=== PATIENT | male | born 1960 | race Caucasian/White ===

== ENCOUNTER 2017-05-01 12:18 | Day surgery (SDC) | payer OTHER ==
[~2017-05-01] VITALS: Ht 180.3 cm; Wt 95.7 kg
--- NOTE | 2017-05-01 16:16 | NUR ---
05/01/17 1616 Emma Echols 1611 PATIENT AWAKE AND TALKING ON ARRIVAL TO PACU. ANSWERS QUESTIONS APPROPRIATELY.
--- NOTE | 2017-05-25 10:36 | OR ---
[facility] [address], [place] [address] Signed PROCEDURE DATE: 05/01/17 PREOPERATIVE DIAGNOSIS: Screening. POSTOPERATIVE DIAGNOSIS: Sigmoid and left-sided diverticulosis. PROCEDURE: Total colonoscopy to cecum. ANESTHESIA: Intravenous sedation, Fentanyl 150 mcg, Versed 6 mg. INDICATIONS This 56-year-old white man is a patient of LOGAN Turner, and known to me from the past having undergone excision of a large pedunculated perineal lesion a number of weeks ago. He has never had a colonoscopy in the past. He is symptom free. He has no family history of colon cancer. He understands the risks of screening colonoscopy, including but not limited to bleeding, infection and perforation, and wishes to proceed. FINDINGS The prep was good. Complete colonoscopy was undertaken to the cecum. There were numerous diverticula of the sigmoid and left colon, but no evidence of polyps, colitis, cancer, or other problem. DESCRIPTION OF PROCEDURE The patient was brought to the endoscopy suite and placed in lateral decubitus position, given intravenous sedation to the point of slurred speech and nystagmus. Digital rectal examination was normal. An Olympus videocolonoscope was passed into the rectum and manipulated throughout the colon, ultimately intubating the cecum itself. The ileocecal valve and appendiceal orifice were normal. The ileocecal valve was rather prominent. It was not adenomatous in any way. The scope was withdrawn from that point and examination throughout was undertaken showing no sign of polyps, but a number of diverticula of the sigmoid and left colon. Most of them are large-mouthed. Retroflexed view in the rectum was normal. The scope was straightened and withdrawn and removed, and the patient was taken to the recovery room in good condition. CONCLUDING DIAGNOSIS Diverticulosis of sigmoid and left colon. No sign of polyp or cancer. PLAN Recommend high-fiber diet. Repeat colonoscopy in 10 years, sooner if clinically Electronically Signed By: SANTHOSH CAROLINA MD 05/25/17 1036 PATIENT NAME: JARRET FISHER CATHY OPERATIVE REPORT DATE OF : 58 PHYSICIAN: SANTHOSH CAROLINA MD REPORT #: [id number] REPORT IS CONFIDENTIAL AND NOT TO BE RELEASED WITHOUT AUTHORIZATION [address] [place], [place] [address] Signed indicated. He will return to the ongoing care of LOGAN Turner. Santhosh Carolina MD JM/Modl /[id number] cc: LOGAN Turner Electronically Signed By: SANTHOSH CAROLINA MD 05/25/17 1036 PATIENT NAME: JARRET FISHER CATHY OPERATIVE REPORT DATE OF : 58 PHYSICIAN: SANTHOSH CAROLINA MD REPORT #: [id number] REPORT IS CONFIDENTIAL AND NOT TO BE RELEASED WITHOUT AUTHORIZATION
== END 2017-05-01 16:45 | disposition home or self-care (01) ==
LOC: OPS 12:18 → DS 12:18 → OPS 13:45
PROVIDERS: Surgery
PROC: 0DJD8ZZ Inspection of Lower Intestinal Tract, Via Natural or Artificial Opening Endoscopic (ICD-10-PCS; principal; 2017-05-01 13:45)
DX: Z12.11 Encounter for screening for malignant neoplasm of colon (principal); K57.30 Diverticulosis of large intestine without perforation or abscess without bleeding; K21.9 Gastro-esophageal reflux disease without esophagitis; I10 Essential (primary) hypertension; Z98.890 Other specified postprocedural states
CPT/HCPCS: 99152; 99153; J2250; J3010; J7120